=== PATIENT | female | born 1985 | race Caucasian/White ===

== ENCOUNTER → 2016-04-24 | Outpatient (CLI) | payer BC ==
[~2016-04-24] MED LIST: ALBUTEROL 0.5ML INH; ATIVAN PO; FLEXERIL10 MG PO; NO MEDICATIONS; PHENERGAN25 M1 PO; ULTRAM PO; ZITHROMAX PO; ZYRTEC10 M2 PO
--- NOTE | ~2016-04-24 | US6 ---
[facility] A Service of [facility] RADIOLOGY TEXT RESULTS PATIENT: ARCENIO PIERRE LOCATION: [facility] : 81 UNIT #: [id number] AGE: [address]: Ousmane Lo MD SEX: F ORDER DR: [id number] [facility] [address] [place], [place] [address] [id number] O MR#: [id number] Acc #: [id number] NAME: ARCENIO PIERRE : 1985 SEX: F STUDY DATE/TIME: 04/24/2016 10:02 UNIT: [facility] ROOM: STUDY DESCRIPTION: US Abdominal Limited Attending Physician: Ousmane Lo M.D. Ordering Physician: Ousmane Lo M.D. Primary Care Physician: Ousmane Lo M.D. MEDICAL IMAGING REPORT This report is preliminary unless electronic signature is present EXAM Right upper quadrant ultrasound 04/24/2016 HISTORY Right upper quadrant abdominal pain for 2 weeks with nausea, vomiting and diarrhea. FINDINGS Ultrasound examination of the gallbladder is negative. There is no cholelithiasis, gallbladder wall thickening, or bile duct dilatation. The visualized liver is negative. IMPRESSION Negative gallbladder ultrasound examination. Dictated by... Nick Velásquez M.D. THIS IS AN ELECTRONICALLY VERIFIED REPORT Nick Velásquez M.D. at 04/27/2016 10:35 AM ARIANNE/latha TD: 04/24/2016 18:15 JOB #: [id number] MEDICAL IMAGING REPORT COPY
== END | disposition home or self-care (01) ==
LOC: CGUS 09:24
DX: R10.11 Right upper quadrant pain (principal); R11.2 Nausea with vomiting, unspecified; R19.7 Diarrhea, unspecified; F10.21 Alcohol dependence, in remission
CPT/HCPCS: 76705